=== PATIENT | female | born 1990 | race American Indian/Alaskan Native ===

== ENCOUNTER 2017-04-10 22:31 | Observation (INO) | payer MEDICAID ==
[2017-04-10] MEDS ORDERED: LACTATED RINGERS 500 ML IV ONE (23:59)
[2017-04-11 00:44] LABS: Bacteria,Urine 1+ /HPF (Negative); Bilirubin,Urine NEG (Negative); Blood,Urine NEG (Negative); Ketones,Urine 20 mg/dL (Negative); Leukocyte Esterase,Urine MOD (Negative); Mucus,Urine 1+ /HPF; Nitrite,Urine NEG (Negative)
[2017-04-11 01:03] LABS: Basophils % (Auto) 0.4 % (0.0-1.8); Eosinophils % (Auto) 0.9 % (0.0-4.3); Hematocrit 32.9 % (30.3-42.9); Hemoglobin 10.2 gm/dl (10.1-14.3); Mean Corpuscular HGB Conc 31 % (30-34); Mean Corpuscular Hemoglobin 25 pg (28-32); Mean Corpuscular Volume 80 fl (79-97); Platelet Count 168 K/mm3 (140-440); Red Blood Count 4.15 M/mm3 (3.65-5.03); Red Cell Distribution Width 14.8 % (13.2-15.2)
[2017-04-11 01:18] LABS: Alanine Aminotransferase 14 units/L (7-56); Albumin 3.7 g/dL (3.9-5); Albumin/Globulin Ratio 1.2 %; Alkaline Phosphatase 122 units/L (35-129); Anion Gap 19 mmol/L; BUN/Creatinine Ratio 17; Blood Urea Nitrogen 5 mg/dL (7-17); Calcium 8.6 mg/dL (8.4-10.2); Carbon Dioxide 22 mmol/L (22-30); Chloride 97.6 mmol/L (98-107); Glucose 71 mg/dL (65-100); Potassium 3.6 mmol/L (3.6-5.0); Sodium 135 mmol/L (137-145); Total Protein 6.8 g/dL (6.3-8.2)
[2017-04-11 02:01] LABS: Uric Acid 3.1 mg/dL (3.5-7.6)
--- NOTE | 2017-04-11 08:54 | Progress Note ---
Assessment and Plan - Patient Problems (1) 37 weeks gestation of Current Visit: Yes Status: Acute (2) Gestational HTN Current Visit: Yes Status: Acute Plan to address problem: Toxemia labs were normal. Continue BP monitoring. Will do BPP today. Continue and toco monitoring. (3) Anemia Current Visit: Yes Status: Acute Qualifiers: Anemia type: iron deficiency Subjective - Subjective Date of service: 04/11/17 Principal diagnosis: Gestational HTN Interval history: Patient is a 26 year old , EDC 04/26/17 who was admitted last night for elevated BP. She was sent from the office because her BP was found to be elevated. Toxemia labs were done. U/A showed + 1 protein. This AM, she denies any BAILEY, visual changes, or RUQ pain. She denies any contractions, fluid leakage or bleeding epr vagina. She reports good movement. tracing is CAT 1. [place]: no contractions. Objective - Vital Signs Vital Signs: Vital Signs - 12hr 04/10/17 04/11/17 04/11/17 23:00 01:25 01:39 Temperature Pulse Rate 121 H 77 82 Respiratory Rate Blood Pressure 137/80 151/95 160/102 Blood Pressure [Left] O2 Sat by Pulse Oximetry 04/11/17 04/11/17 04/11/17 01:54 02:09 02:31 Temperature Pulse Rate 83 69 76 Respiratory Rate Blood Pressure 154/104 156/95 154/93 Blood Pressure [Left] O2 Sat by Pulse Oximetry 04/11/17 04/11/17 04/11/17 02:52 03:52 04:15 Temperature 98.3 F Pulse Rate 78 76 Respiratory 20 Rate Blood Pressure 139/94 123/84 Blood Pressure [Left] O2 Sat by Pulse Oximetry 04/11/17 04/11/17 04/11/17 04:23 04:29 04:53 Temperature Pulse Rate 81 83 99 H Respiratory Rate Blood Pressure 142/88 136/90 Blood Pressure [Left] O2 Sat by Pulse 99 Oximetry 04/11/17 04/11/17 04/11/17 05:52 06:52 07:52 Temperature Pulse Rate 79 83 74 Respiratory Rate Blood Pressure 126/79 113/71 148/72 Blood Pressure [Left] O2 Sat by Pulse Oximetry 11/30/17 11/30/17 11/30/17 08:22 08:26 08:52 Temperature 97.5 F L Pulse Rate 83 83 84 Respiratory 16 Rate Blood Pressure 129/69 124/81 Blood Pressure 129/69 [Left] O2 Sat by Pulse Oximetry - Exam Cardiovascular: Normal S1, Normal S2 Lungs: Clear to auscultation Vulva: both: normal Uterus: Present: firm FHR: category 1 Uterine Contraction Monitor Mode: External Cervical Dilatation: 2 Cervical Effacement Percentage: 50 station: -3 Uterine Contraction Pattern: Absent Deep Tendon Reflex Grade: Normal +2 - Labs Labs: Abnormal Labs 04/10/17 04/11/17 04/11/17 23:45 00:10 00:10 MCH 25 L Sodium 135 L Chloride 97.6 L BUN 5 L Creatinine 0.3 L Uric Acid 3.1 L Albumin 3.7 L Urine WBC (Auto) 11.0 H Laboratory Results - last 24 hr 04/10/17 04/11/17 04/11/17 23:45 00:10 00:10 WBC 8.0 RBC 4.15 Hgb 10.2 Hct 32.9 MCV 80 MCH 25 L MCHC 31 RDW 14.8 Plt Count 168 Lymph % (Auto) 24.4 [place] % (Auto) 4.9 Eos % (Auto) 0.9 Baso % (Auto) 0.4 Lymph # 1.9 [place] # 0.4 Eos # 0.1 Baso # 0.0 Seg Neutrophils % 69.4 Seg Neutrophils # 5.5 Sodium 135 L Potassium 3.6 Chloride 97.6 L Carbon Dioxide 22 Anion Gap 19 BUN 5 L Creatinine 0.3 L Estimated GFR > 60 BUN/Creatinine Ratio 17 Glucose 71 Uric Acid 3.1 L Calcium 8.6 Total Bilirubin 0.40 AST 20 ALT 14 Alkaline Phosphatase 122 Total Protein 6.8 Albumin 3.7 L Albumin/Globulin Ratio 1.2 Urine Color Yellow Urine Turbidity Clear Urine pH 6.0 Ur Specific [place] 1.021 Urine Protein 30 mg/dl Urine Glucose (UA) Neg Urine Ketones 20 Urine Blood Neg Urine Nitrite Neg Urine Bilirubin Neg Urine Urobilinogen 2.0 Ur Leukocyte Esterase Mod Urine WBC (Auto) 11.0 H Urine RBC (Auto) 3.0 U Epithel Cells (Auto) 5.0 Urine Bacteria (Auto) 1+ Urine Mucus 1+
--- NOTE | 2017-04-11 12:32 | Ultrasound Report ---
ULTRASOUND BIOPHYSICAL PROFILE: History: Hypertension Technique: Transabdominal ultrasound with Doppler interrogation. 2 - breathing movements 2 - movements 2 - posture and tone 2 - Qualitative amniotic fluid volume 8 - TOTAL SCORE OF POSSIBLE 8 Heart Rate (bpm) 151
--- NOTE | 2017-04-11 12:33 | Ultrasound Report ---
ULTRASOUND OB LIMITED History: well-being, hypertension Technique: Transabdominal ultrasound with Doppler interrogation. Gestation: Single Position: Cephalic Amniotic Fluid: Normal MARILYNN = 13.9 cm Heart Rate: 149 BPM
[2017-04-11] MEDS ORDERED: MINERAL OIL PO PRN (13:38)
[2017-04-11] MEDS ORDERED: LACTATED RINGERS 1,000 ML IV SCH (14:00)
--- NOTE | 2017-04-11 14:03 | History and Physical Report ---
History of Present Illness Date of examination: 04/11/17 Date of admission: 04/11/17 02:25 History of present illness: Patient is a 26 year old , EDC 04/26/17 at 37 weeks and 5 days who was admitted last night for elevated BP. She was sent from the office because her BP was found to be elevated. Toxemia labs were done. U/A showed + 1 protein. This AM, she denies any BAILEY, visual changes, or RUQ pain. She denies any contractions, fluid leakage or bleeding per vagina. She reports good movement. tracing is CAT 1. [place]: no contractions. Since admission, her BP has been normal. Past History - Obstetrical History : 5 Medications and Allergies Allergies Allergy/AdvReac Type Severity Reaction Status Date / Time No Known Allergies Allergy Verified 08/13/14 00:41 Home Medications Medication Instructions Recorded Confirmed Last Taken Type No Known Home Medications [No 08/13/14 08/19/14 Unknown History Reported Home Medications] Active Meds: Active Medications Lactated Ringer's (Lactated Ringers) 1,000 mls @ 125 mls/hr IV DIRECT EDELMIRA Labetalol HCl (Normodyne) 100 mg PO BID EDELMIRA Mineral Oil (Mineral Oil) 30 ml PO QHS PRN PRN Reason: Constipation - Vital Signs Vital signs: Vital Signs Pulse BP 121 H 137/80 04/10/17 23:00 04/10/17 23:00 Temp Pulse Resp BP Pulse Ox 98.4 F 87 18 144/92 99 04/11/17 11:56 04/11/17 13:52 04/11/17 11:56 04/11/17 13:52 04/11/17 04:29 - Physical Exam Cardiovascular: Normal S1, Normal S2 Lungs: Positive: Clear to auscultation Vulva: both: normal [place]: both: normal Deep Tendon Reflex Grade: Normal +2 - Obstetrical FHR: category 1 Uterine Contraction Monitor Mode: External Cervical Dilatation: 2 Cervical Effacement Percentage: 50 station: -3 Uterine Contraction Pattern: Absent Results Result Diagrams: 04/11/17 00:10 04/11/17 00:10 Abnormal lab results 04/10/17 04/11/17 04/11/17 Range/Units 23:45 00:10 00:10 MCH 25 L (28-32) pg Sodium 135 L (137-145) mmol/L Chloride 97.6 L (98-107) mmol/L BUN 5 L (7-17) mg/dL Creatinine 0.3 L (0.7-1.2) mg/dL Uric Acid 3.1 L (3.5-7.6) mg/dL Albumin 3.7 L (3.9-5) g/dL Urine WBC (Auto) 11.0 H (0.0-6.0) /HPF All other labs normal. Assessment and Plan - Patient Problems (1) 37 weeks gestation of Current Visit: Yes Status: Acute Plan to address problem: Admit to floor. FHT and toco monitoring. IV fluid. Labs. (2) Gestational HTN Current Visit: Yes Status: Acute Plan to address problem: Toxemia labs were normal. Continue BP monitoring. Will do BPP today. Continue and toco monitoring. (3) Anemia Current Visit: Yes Status: Acute Qualifiers: Anemia type: iron deficiency Plan to address problem: Iron sulfate.
[2017-04-11 14:04] LABS: Hematocrit 28.1 % (30.3-42.9); Hemoglobin 9.1 gm/dl (10.1-14.3); Mean Corpuscular HGB Conc 32 % (30-34); Mean Corpuscular Volume 80 fl (79-97); Platelet Count 179 K/mm3 (140-440); Red Blood Count 3.53 M/mm3 (3.65-5.03); Red Cell Distribution Width 15.2 % (13.2-15.2); White Blood Count 8.4 K/mm3 (4.5-11.0)
[2017-04-11 14:05] LABS: Mean Corpuscular Hemoglobin 26 pg (28-32)
[2017-04-11] MEDS: NORMODYNE PO SCH (19:16)
[2017-04-12] MEDS: NORMODYNE PO SCH (07:04)
[2017-04-12 08:51] VITALS: BP 129/84
--- NOTE | 2017-04-12 09:27 | Discharge Summary ---
Providers - Providers Date of Admission: 04/11/17 02:25 Date of discharge: 04/12/17 Attending physician: MABEL DASH MD Primary care physician: MABEL DASH MD Hospitalization Reason for admission: other (Gest HTN) Condition at discharge: Stable Disposition: DC-01 TO HOME OR SELFCARE - Discharge Diagnoses (1) 37 weeks gestation of Status: Acute (2) Gestational HTN Status: Acute Comment: BP has been stable since admission. Labetolol BID. (3) Anemia Status: Acute Qualifiers: Anemia type: iron deficiency Plan - Provider Discharge Summary Activity: routine Diet: routine Instructions: routine Additional instructions: [] Smoking cessation referral if applicable(refer to patient education folder for contact #) [] Refer to [facility] Booklet Call your doctor immediately for: * Fever > 100.5 * Heavy vaginal bleeding ( >1 pad per hour) * Severe persistent headache * Shortness of breath * Reddened, hot, painful area to leg or breast * Drainage or odor from incision. * Keep incision clean and dry at all times and follow doctor's instructions regarding bathing/showering - Follow up plan Follow up: MABEL DASH MD [Primary Care Provider] - 7 Days
--- NOTE | 2017-04-12 09:32 | Progress Note ---
Assessment and Plan - Patient Problems (1) 37 weeks gestation of Current Visit: Yes Status: Acute Plan to address problem: Will discharge pt home today. She will F/U in the office next week. Continue labetolol BID. Labor and toxemia precautions. (2) Gestational HTN Current Visit: Yes Status: Acute Plan to address problem: Pt was given Rx to continue labetolol at home. (3) Anemia Current Visit: Yes Status: Acute Qualifiers: Anemia type: iron deficiency Plan to address problem: Iron sulfate. Subjective - Subjective Date of service: 04/12/17 Principal diagnosis: Gestational HTN Interval history: Patient is a 26 year old , EDC 04/26/17 at 37 weeks and 6 days who was admitted 2 days ago for elevated BP. She was sent from the office because her BP was found to be elevated. Toxemia labs were normal. U/A showed + 1 protein. This AM, she denies any BAILEY, visual changes, or RUQ pain. She denies any contractions, fluid leakage or bleeding per vagina. She reports good movement. tracing is CAT 1. [place]: no contractions. Since admission, her BP has been normal. Objective - Vital Signs Vital Signs: Vital Signs - 12hr 04/11/17 04/11/17 04/11/17 21:52 22:52 23:52 Temperature Pulse Rate 77 75 72 Respiratory Rate Blood Pressure 127/85 131/80 132/85 Blood Pressure [Left] 04/12/17 04/12/17 04/12/17 00:52 01:52 02:52 Temperature Pulse Rate 76 95 H 85 Respiratory Rate Blood Pressure 117/71 136/87 125/76 Blood Pressure [Left] 04/12/17 04/12/17 04/12/17 03:52 04:52 05:52 Temperature Pulse Rate 93 H 90 97 H Respiratory Rate Blood Pressure 128/74 121/82 132/79 Blood Pressure [Left] 04/12/17 04/12/17 04/12/17 07:19 07:23 07:52 Temperature 97.5 F L Pulse Rate 78 78 86 Respiratory 20 Rate Blood Pressure 126/83 125/83 Blood Pressure 126/83 [Left] 04/12/17 08:53 Temperature Pulse Rate 92 H Respiratory Rate Blood Pressure 129/84 Blood Pressure [Left] - Exam Cardiovascular: Normal S1, Normal S2 Lungs: Clear to auscultation Vulva: both: normal FHR: category 1 Uterine Contraction Monitor Mode: External Uterine Contraction Pattern: Absent Deep Tendon Reflex Grade: Normal +2 - Labs Labs: Abnormal Labs 04/10/17 04/11/17 04/11/17 23:45 00:10 00:10 RBC Hgb Hct MCH 25 L Sodium 135 L Chloride 97.6 L BUN 5 L Creatinine 0.3 L Uric Acid 3.1 L Albumin 3.7 L Urine WBC (Auto) 11.0 H Urine Creatinine Urine Total Protein 04/11/17 04/12/17 13:53 03:01 RBC 3.53 L Hgb 9.1 L Hct 28.1 L MCH 26 L Sodium Chloride BUN Creatinine Uric Acid Albumin Urine WBC (Auto) Urine Creatinine 108.5 H Urine Total Protein 20 H Laboratory Results - last 24 hr 04/11/17 04/11/17 04/11/17 13:51 13:51 13:53 WBC 8.4 RBC 3.53 L Hgb 9.1 L Hct 28.1 L MCV 80 MCH 26 L MCHC 32 RDW 15.2 Plt Count 179 Urine Total Volume Urine Creatinine Ur Creatinine 24 Hour Ur Total Protein 24 Hr Urine Total Protein RPR Nonreactive Blood Type A POSITIVE Antibody Screen Negative 04/12/17 03:01 WBC RBC Hgb Hct MCV MCH MCHC RDW Plt Count Urine Total Volume 700 Urine Creatinine 108.5 H Ur Creatinine 24 Hour 0.8 Ur Total Protein 24 Hr 140.00 Urine Total Protein 20 H RPR Blood Type Antibody Screen
== END 2017-04-12 11:00 | disposition home or self-care (01) ==
LOC: US 22:31 → TRG 22:32 → US 04-11 02:25 → INTOOBSV 04-11 02:25 → LD 04-11 02:25
PROVIDERS: ADMIT Obstetrics & Gynecology; ATTEND Obstetrics & Gynecology
DX: O13.3 Gestational [pregnancy-induced] hypertension without significant proteinuria, third trimester (principal); O99.013 Anemia complicating pregnancy, third trimester; Z3A.37 37 weeks gestation of pregnancy
CPT/HCPCS: 36415; 76815; 76819; 80053; 81001; 82570; 84156; 84550; 85025; 85027; 86592; 86850; 86900; 86901; J7120; G0378

== ENCOUNTER 2017-04-25 10:57 | Inpatient (IN) | payer MEDICAID ==
[2017-04-25] MEDS ORDERED: POLYCILLIN/NS 2 GM/100 ML 2 GM/100 ML BAG IV ONE (11:38)
[2017-04-25] MEDS ORDERED: POLYCILLIN IM ONE (11:39)
[2017-04-25] MEDS ORDERED: NARCAN 0.4 MG/1 ML IV PRN (11:41)
[2017-04-25] MEDS ORDERED: BRETHINE IVP PRN (11:41)
[2017-04-25] MEDS ORDERED: XYLOCAINE 2% INFILTRATI ONE (11:41)
[2017-04-25] MEDS ORDERED: STADOL IV PRN ×2 (11:41→16:00)
[2017-04-25] MEDS ORDERED: MINERAL OIL PO PRN (11:41)
[2017-04-25] MEDS ORDERED: BRETHINE SUB-Q PRN (11:41)
[2017-04-25] MEDS ORDERED: ePHEDrine SULFATE IV PRN (11:41)
[2017-04-25] MEDS ORDERED: LACTATED RINGERS 1,000 ML ONE (11:46)
[2017-04-25] MEDS ORDERED: PITOCin/NS 30 UNIT/500ML 30 UNITS/500 ML BAG IV SCH (12:00)
[2017-04-25] MEDS ORDERED: PITOCin/NS 20 UNIT/1000ML DRIP 20 UNITS/1,000 ML BAG IV SCH (12:00)
[2017-04-25] MEDS ORDERED: LACTATED RINGERS 1,000 ML IV SCH ×2 (12:00)
--- NOTE | 2017-04-25 12:06 | History and Physical Report ---
History of Present Illness Date of examination: 04/25/17 Date of admission: 04/25/17 11:27 Chief complaint: Intense Labor Pains History of present illness: Late entry to care at 25 6/7 Weeks, course complicated by Anemia, Vitamin D Deficiency, hx of HSV II, and elevated blood pressures in the third trimester. 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 History: chlamydia, herpes, trichomonas Family/Genetic History: cancer (Breast CA (Aunt); Pancreatic Ca (Father)) Social history: no significant social history, single - Obstetrical History Expected Date of Delivery: 04/27/17 Actual Gestation: 39 Week(s) 5 Day(s) : 5 Para: 3 Hx # Term Pregnancies: 2 Number of Pregnancies: 1 Induced : 1 Number of Living Children: 3 #1 Infant Gender: Male year: 2,009 Birthweight: 3.629 kg Method of Delivery: Vaginal Gestational age at delivery: 40 Complications: none #2 Infant Gender: Female year: 2,013 Birthweight: 3.203 kg Method of Delivery: Vaginal Gestational age at delivery: 40 Complications: none #3 Gender: Female year: 2,015 Birthweight: 2.722 kg Method of Delivery: Vaginal Gestational age at delivery: 36 Medications and Allergies Allergies Allergy/AdvReac Type Severity Reaction Status Date / Time No Known Allergies Allergy Verified 08/13/14 00:41 Home Medications Medication Instructions Recorded Confirmed Last Taken Type No Known Home Medications [No 08/13/14 04/11/17 Unknown History Reported Home Medications] Active Meds: Active Medications Butorphanol Tartrate (Stadol) 2 mg IV Q2H PRN PRN Reason: Pain , Severe (7-10) Ephedrine Sulfate (Ephedrine Sulfate) 10 mg IV Q2M PRN PRN Reason: Hypotension Ampicillin Sodium (Polycillin/Ns 2 Gm/100 Ml) 2 gm in 100 mls @ 100 mls/hr IV ONCE ONE Stop: 04/25/17 12:37 Lactated Ringer's (Lactated Ringers) 1,000 mls @ 125 mls/hr IV DIRECT EDELMIRA Lactated Ringer's (Lactated Ringers) 1,000 mls @ 125 mls/hr IV DIRECT EDELMIRA Last Admin: 04/25/17 12:00 Dose: 125 mls/hr Oxytocin/Sodium Chloride (Pitocin/Ns 20 Unit/1000ml Drip) 20 units in 1,000 mls @ 125 mls/hr IV DIRECT EDELMIRA Oxytocin/Sodium Chloride (Pitocin/Ns 30 Unit/500ml) 30 units in 500 mls @ 1 mls /hr IV TITR EDELMIRA; 1 MILLIUNITS/MIN PRN Reason: Protocol Mineral Oil (Mineral Oil) 30 ml PO QHS PRN PRN Reason: Constipation Naloxone HCl (Narcan 0.4 Mg/1 Ml) 0.1 mg IV Q2MIN PRN PRN Reason: Res Rate </= 8 or 02 SAT < 92% Terbutaline Sulfate (Brethine) 0.25 mg SUB-Q ONCE PRN PRN Reason: Hyperstimulation/Hypertonicity Terbutaline Sulfate (Brethine) 0.25 mg IVP ONCE PRN PRN Reason: Hyperstimulation/Hypertonicity Review of Systems All systems: negative - Vital Signs Vital signs: Vital Signs Pulse BP 86 158/106 04/25/17 11:40 04/25/17 11:40 Temp Pulse Resp BP Pulse Ox 98.7 F 84 20 149/95 99 04/25/17 11:49 04/25/17 12:03 04/25/17 11:49 04/25/17 11:55 04/25/17 12:03 - Physical Exam Breasts: Positive: normal Cardiovascular: Regular rate Lungs: Positive: Clear to auscultation, Normal air movement Abdomen: Positive: normal appearance, soft, normal bowel sounds Genitourinary (Female): Positive: normal external genitalia, normal perenium Vagina: Positive: normal moisture Uterus: Positive: enlarged Anus/Rectum: Positive: normal perianal skin Extremities: Positive: normal - Obstetrical FHR: category 1 Uterine Contraction Monitor Mode: External Cervical Dilatation: 7 (moderate amount of clear fluid upon AROM at 1155) Cervical Effacement Percentage: 80 station: -1 Uterine Contraction Pattern: Regular Uterine Tone Measurement Phase: Resting Uterine Contraction Intensity: Strong/Firm Results All other labs normal. Assessment and Plan A: IUP @ 39 5/7 Weeks Category I Tracing Active Labor GBS Positive P: Admit to L&D per routine orders GBS prophylaxis AROM
[2017-04-25 12:09] LABS: Hematocrit 32.3 % (30.3-42.9); Hemoglobin 10.3 gm/dl (10.1-14.3); Mean Corpuscular HGB Conc 32 % (30-34); Mean Corpuscular Hemoglobin 25 pg (28-32); Mean Corpuscular Volume 78 fl (79-97); Platelet Count 188 K/mm3 (140-440); Red Blood Count 4.15 M/mm3 (3.65-5.03); Red Cell Distribution Width 15.3 % (13.2-15.2); White Blood Count 13.7 K/mm3 (4.5-11.0)
[2017-04-25 12:17] LABS: Alanine Aminotransferase 12 units/L (7-56); Lactate Dehydrogenase 225 units/L (91-180); Uric Acid 3.5 mg/dL (3.5-7.6)
[2017-04-25] MEDS ORDERED: BENADRYL PO PRN (13:42)
[2017-04-25] MEDS ORDERED: TUCKS PAD TP PRN (13:42)
[2017-04-25] MEDS ORDERED: TYLENOL PO PRN (13:42)
[2017-04-25] MEDS ORDERED: MILK OF MAGNESIA PO PRN (13:42)
[2017-04-25] MEDS ORDERED: ZOFRAN IV PRN (13:42)
[2017-04-25] MEDS ORDERED: LANSINOH TP PRN (13:42)
[2017-04-25] MEDS ORDERED: PHENERGAN PO PRN (13:42)
[2017-04-25] MEDS ORDERED: DULCOLAX PR PRN (13:42)
[2017-04-25] MEDS ORDERED: PHENERGAN PR PRN (13:42)
--- NOTE | 2017-04-25 13:59 | Procedure Note ---
OB Delivery Note - Delivery Date of Delivery: 04/25/17 (1322) Surgeon: ALISON MEJIA Estimated blood loss: 300cc - Vaginal Delivery presentation: vertex Delivery position: OA Intrapartum events: none Delivery induction: none Delivery augmentation: rupture of membranes Delivery monitor: external FHT, external uterine Route of delivery: Delivery placenta: spontaneous Delivery cord: 3 umbilical vessels Episiotomy: none Delivery laceration: 1st degree Delivery repair: vicryl Anesthesia: local Delivery comments: of a live 6'15 male over a 1st degree perineal laceration under IV pain control with Apgars of 9 and 9 at 1322 on 04/25/2017. Infant directly to maternal abd/chest, skin to skin contact. Spontaneous delivery of placenta complete and intact with [place] side presenting at 1324. Fundus is firm and midline located 4 below the U. Lochia is scant. Perineal laceration repaired with 2-0 Vicryl on a SH under local 2% Lidocaine. Delayed cord clamping and cutting; Cord cut by the father of the baby. Placenta Discarded. GBS prophylaxis x 1. Elevated BPs during active labor, 156/108, 149/95, 157/103, 167 /107, 166/102; After delivery BP: 160/86. Will continue to watch Blood pressures. Mother denies HAs, visual changes, edema, N&V. PIH Labs: H/H: 10.3/ 32.3, Plt: 188, AST/ALT: 20/12, CR. 0.4, LDH: 225. Manjinder Hedrick consulted due to Elevated Blood Pressures. - Infant A at 1 minute: 9 at 5 minutes: 9 Gender: Male (6'15)
[2017-04-25] MEDS ORDERED: SODIUM CHLORIDE FLUSH SYRINGE 10 ML IV PRN (14:00)
[2017-04-25] MEDS ORDERED: POLYCILLIN/NS 1 GM/50 ML 1 GM/50 ML BAG IV ONE (16:00)
[2017-04-25] MEDS: MOTRIN PO SCH ×2 (17:20→23:26)
[2017-04-26 02:03] LABS: Hematocrit 26.7 % (30.3-42.9); Hemoglobin 8.6 gm/dl (10.1-14.3)
--- NOTE | 2017-04-26 09:23 | Progress Note ---
Assessment and Plan A: PPD 1 - stable Gestational HTN Anemia - asymptomatic P: Continue routine PP orders Start Ferrous sulfate 325mg PO BID Discharge to home tomorrow 04/27/17 Continue Labetalol 100mg PO BID Schedule appointment in 1 week for BP check Schedule appointment for PP exam in 6 weeks Subjective - Subjective Date of service: 04/26/17 Principal diagnosis: Normal Spontaneous Vaginal Delivery Patient reports: appetite normal, voiding normally, pain well controlled, ambulating normally [place]: doing well, bottle feeding Objective - Vital Signs Latest vital signs: Vital Signs Temp Pulse Resp BP BP Pulse Ox 04/26/17 00:26 16 04/26/17 00:00 98.0 F 71 20 130/73 04/25/17 23:26 16 04/25/17 20:15 98.4 F 81 18 128/80 04/25/17 15:20 98.6 F 75 16 137/83 100 04/25/17 14:47 88 141/74 04/25/17 14:37 84 155/78 04/25/17 14:27 79 161/77 04/25/17 14:17 77 138/73 04/25/17 13:56 85 169/70 04/25/17 13:41 94 H 160/86 04/25/17 13:30 22 04/25/17 13:13 89 99 04/25/17 13:10 76 166/102 04/25/17 13:08 84 99 04/25/17 13:03 82 98 04/25/17 12:58 99 H 96 04/25/17 12:57 91 H 167/102 04/25/17 12:53 76 97 04/25/17 12:48 80 95 04/25/17 12:45 74 94 04/25/17 12:43 83 96 04/25/17 12:42 74 137/87 04/25/17 12:38 79 97 04/25/17 12:34 94 H 93 04/25/17 12:33 90 99 04/25/17 12:28 84 95 04/25/17 12:26 70 155/95 04/25/17 12:25 69 94 04/25/17 12:23 75 96 04/25/17 12:18 81 95 04/25/17 12:13 97 H 99 04/25/17 12:11 20 04/25/17 12:10 86 147/100 04/25/17 12:08 87 99 04/25/17 12:03 84 99 04/25/17 11:58 103 H 99 04/25/17 11:55 86 149/95 04/25/17 11:53 92 H 99 04/25/17 11:49 98.7 F 87 20 149/95 98 04/25/17 11:48 83 99 04/25/17 11:43 77 100 04/25/17 11:40 86 158/106 Intake and Output 04/25/17 04/26/17 04/26/17 23:59 07:59 15:59 Intake Total 720 Output Total 900 1700 Balance -900 -980 Intake: Oral 720 Output: Urine 900 1700 Void 900 1700 Other: Total, Intake Amount 240 Total, Output Amount 900 800 # Voids Void 3 - Exam Breasts: Present: deferred Cardiovascular: Present: Regular rate, Normal S1, Normal S2, No murmurs Lungs: Present: Clear to auscultation, Normal air movement Abdomen: Present: normal appearance, soft Vulva: both: laceration/episiotomy (well approximated) Uterus: Present: normal, firm, fundal height below umbilicus Extremities: Present: normal Deep Tendon Reflex Grade: Normal +2 - Labs Labs: Abnormal lab results 04/25/17 04/25/17 04/26/17 Range/Units 11:30 11:30 01:49 WBC 13.7 H (4.5-11.0) K/mm3 Hgb 8.6 L (10.1-14.3) gm/dl Hct 26.7 L (30.3-42.9) % MCV 78 L (79-97) fl MCH 25 L (28-32) pg RDW 15.3 H (13.2-15.2) % Creatinine 0.4 L (0.7-1.2) mg/dL Lactate Dehydrogenase 225 H (91-180) units/L
--- NOTE | 2017-04-26 09:27 | Discharge Summary ---
Providers - Providers Date of Admission: 04/25/17 11:27 Date of discharge: 04/27/17 Attending physician: MABEL DASH MD Primary care physician: MABEL DASH MD Hospitalization Reason for admission: active labor (Gestational HTN), IUP at term Delivery: Episiotomy: none Laceration: 1st degree Other procedures: none complications: none Discharge diagnosis: IUP at term delivered, other (Gestational HTN, Anemia of puerperium) [place] baby: male Hospital course: Uncomplicated Condition at discharge: Stable Disposition: DC-01 TO HOME OR SELFCARE Plan - Discharge Medications Prescriptions: Ferrous Sulfate [Feosol 325 MG tab] 325 mg PO BID #60 tablet - Provider Discharge Summary Activity: routine, no sex for 6 weeks, no strenuous exercise Diet: routine Instructions: routine Additional instructions: [] Smoking cessation referral if applicable(refer to patient education folder for contact #) [] Refer to [facility]'s [facility] Booklet Call your doctor immediately for: * Fever > 100.5 * Heavy vaginal bleeding ( >1 pad per hour) * Severe persistent headache * Shortness of breath * Reddened, hot, painful area to leg or breast * Drainage or odor from incision. * Keep incision clean and dry at all times and follow doctor's instructions regarding bathing/showering - Follow up plan Follow up: MABEL DASH MD [Primary Care Provider] - 7 Days (Follow up in 1 week for BP check and in 6 weeks for PP exam)
[2017-04-26] MEDS: FEOSOL PO SCH ×2 (11:55→22:57)
[2017-04-26] MEDS: MOTRIN PO SCH ×3 (11:55→22:59)
[2017-04-26] MEDS: NORMODYNE PO SCH ×2 (16:18→22:57)
[2017-04-27] MEDS: MOTRIN PO SCH ×2 (02:00→12:29)
--- NOTE | 2017-04-27 09:28 | Progress Note ---
Assessment and Plan - Patient Problems (1) 39 weeks gestation of Current Visit: Yes Status: Acute (2) (normal spontaneous vaginal delivery) Current Visit: Yes Status: Acute (3) Gestational HTN Current Visit: No Status: Acute Plan to address problem: Patient is asymptomatic. Toxemia labs were normal. She is being discharged home with toxemia precautions. She was told to continue labetolol 200 mg PO BID. She was told to F/U in office in 1 week. (4) Anemia Current Visit: No Status: Acute Qualifiers: Anemia type: iron deficiency Plan to address problem: Continue iron. Subjective - Subjective Date of service: 04/27/17 Principal diagnosis: Normal Spontaneous Vaginal Delivery Interval history: Patient is S/P 2 days ago. She denies any complaint. her BP was elevated. Toxemia labs were normal. She was given labetolol for gest HTN before to take before she was admitted to the hospital. She only took one dose. She denies any BAILEY, visual changes or RUQ pain. Objective - Vital Signs Latest vital signs: Vital Signs Temp Pulse Resp BP Pulse Ox 04/27/17 06:03 98.4 F 64 20 146/86 100 04/27/17 02:59 98.0 F 73 20 142/94 97 04/27/17 02:00 16 04/26/17 23:59 18 04/26/17 22:59 18 04/26/17 22:57 72 136/87 04/26/17 20:55 18 04/26/17 19:55 18 04/26/17 16:18 72 138/87 04/26/17 11:38 98.0 F 68 18 144/92 100 Intake and Output 04/26/17 04/27/17 04/27/17 23:59 07:59 15:59 Intake Total 240 600 Balance 240 600 Intake: Oral 360 Intake, Free Water 240 240 Other: Total, Intake Amount 360 Voiding Method Toilet # Voids Void 1 1 - Exam Cardiovascular: Present: Normal S1, Normal S2 Lungs: Present: Clear to auscultation Vulva: both: normal Deep Tendon Reflex Grade: Normal +2
[2017-04-27] MEDS: FEOSOL PO SCH (10:00)
[2017-04-27] MEDS ORDERED: NORMODYNE PO SCH (10:00)
[2017-04-27 15:01] VITALS: BP 129/88
== END 2017-04-27 18:00 | disposition home or self-care (01) | DRG 774 ==
LOC: TRG 10:57 → LD 11:27 → OB 15:25
PROVIDERS: ADMIT Obstetrics & Gynecology; ATTEND Obstetrics & Gynecology
PROC: 10E0XZZ Delivery of Products of Conception, External Approach (ICD-10-PCS; principal; 2017-04-25)
PROC: 0HQ9XZZ Repair Perineum Skin, External Approach (ICD-10-PCS; 2017-04-25)
DX: O13.4 Gestational [pregnancy-induced] hypertension without significant proteinuria, complicating childbirth (principal); O99.824 Streptococcus B carrier state complicating childbirth; O70.0 First degree perineal laceration during delivery; D64.9 Anemia, unspecified; Z3A.39 39 weeks gestation of pregnancy; Z37.0 Single live birth; Z80.3 Family history of malignant neoplasm of breast; O90.81 Anemia of the puerperium
CPT/HCPCS: 36415; 82565; 83615; 84450; 84460; 84550; 85014; 85018; 85027; 86592; 86850; 86900; 86901; J0290; J0595; J2590; J7120